=== PATIENT | male | born 1955 | race Two or more races ===

== ENCOUNTER 2024-09-07 07:55 | Day surgery (SDC) | payer MEDICARE, SELFPAY ==
--- NOTE | 2024-09-01 10:53 | EKG_ITS ---
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 : 1955 Requested By: Val Olvera Order Number: [id number] Reading MD: Val Olvera Measurements Intervals [place] Rate: 72 P: 14 MD: 146 QRS: -26 QRSD: 85 T: -37 QT: 349 QTc: 382 Interpretive Statements SINUS RHYTHM LOW QRS VOLTAGE IN PRECORDIAL LEADS [QRS DEFLECTION < 1.0 mV IN CHEST LEADS] POSSIBLE ANTERIOR MYOCARDIAL INFARCTION , OF INDETERMINATE AGE [30 ms Q WAVE IN V3/V4, OR R < 0.2 mV IN V4] INFERIOR MYOCARDIAL INFARCTION , OF INDETERMINATE AGE [40+ ms Q WAVE AND/OR ST/T ABNORMALITY IN II/aVF] WARNING: DATA QUALITY MAY AFFECT INTERPRETATION No previous ECG available for comparison /[id number]
[2024-09-01 11:04] VITALS: BMI 29.9
[2024-09-01 11:38] LABS: Basophils % (Auto) 1 % (0-2.5); Eosinophils # (Auto) 0.2 Thou/mm3 (0.0-0.5); Eosinophils % (Auto) 3 % (0-10); Hematocrit 44.6 % (41.0-53.0); Hemoglobin 15.9 g/dL (13.5-16.0); Immature Granulocytes % (Auto) 0 % (0-0); Immature Granulocytes Auto 0.02 Thou/mm3 (0.00-0.00); Lymphocytes # (Auto) 1.7 Thou/mm3 (1.0-4.8); Lymphocytes % (Auto) 23 % (10-50); Mean Corpuscular HGB Conc 35.7 g/dl (31.0-37.0); Mean Corpuscular Hemoglobin 30.9 pg (25.0-35.0); Mean Corpuscular Volume 87 fL (80-100); Monocytes # (Auto) 0.7 Thou/mm3 (0.0-0.8); Monocytes % (Auto) 10 % (0-12); Neutrophils # (Auto) 4.6 Thou/mm3 (1.8-7.7); Neutrophils % (Auto) 63 % (37-80); Nucleated Red Blood Cell % 0 /100 WBC (0); Platelet Count 211 Thou/mm3 (140-440); RDW Standard Deviation 39.1 fL (35.1-43.9); Red Blood Count 5.15 Miln/mm3 (4.50-5.90); White Blood Count 7.3 Thou/mm3 (3.8-10.6)
[2024-09-01 11:54] LABS: Alanine Aminotransferase 108 U/L (10-49); Albumin, Serum 4.5 gm/dL (3.4-4.8); Albumin/Globulin Ratio 1.4 (1.2-2.2); Alkaline Phosphatase 45 U/L (46-116); Anion Gap 8 (7-16); Aspartate Amino Transferase 65 U/L (0-34); BUN/Creatinine Ratio 16 Ratio (12-20); Bilirubin,Total 0.5 mg/dL (0.3-1.2); Blood Urea Nitrogen 16 mg/dL (9-23); Calcium 10.2 mg/dL (8.3-10.6); Calcium (Corrected) 10.2 mg/dL (8.5-10.1); Carbon Dioxide 28.2 mMol/L (20.0-31.0); Chloride 102 mMol/L (98-107); Estimated Creatinine Clearance 63.4 mL/min (>60); Globulin 3.2 gm/dL (2.3-3.5); Glucose 183 mg/dL (74-106); Osmolality,Calculated 281 (275-295); Potassium 4.1 mMol/L (3.4-5.1); Sodium 138 mMol/L (136-145); Total Protein 7.7 gm/dL (5.7-8.2); eGFR > 60 See Note
[2024-09-07] VITALS (8 sets, daily range): BP systolic 125–138; BP diastolic 78–92; PULSE 72–80; RESP 12–20; TEMP 36.3–36.7; O2SAT 94–98; BMI 28.8
--- NOTE | 2024-09-07 10:31 | ESOP_ITS ---
Date of Procedure 09/07/24 Pre Op Diagnosis Left inguinal hernia Post Op Diagnosis Indirect left inguinal hernia Procedure Repair of indirect left inguinal hernia with mesh Findings Patient was noted to have indirect left inguinal hernia defect Procedure Description Patient brought into the operating room in supine position. After administ ration of general endotracheal anesthesia, patient's left groin was shaved, prepped and draped in standard surgical manner. The left inguinal crease was anesthetized with half percent Marcaine. An approximately 6 cm incision was made and dissection was carried to subcutaneous tissue. The Kelsy's fascia was divided and the external oblique aponeurosis was opened towards the external ring. The hernia sac and the spermatic cord structures were from the posterior aspect of the external oblique aponeurosis at the level of pubic tubercle. The hernia sac was then meticulously dissected off the spermatic cord structures at the level of internal ring. Patient was noted to have indirect left inguinal hernia sac. The hernia sac was then ligated at the level of internal ring. The floor of inguinal canal was then reconstructed with ultra Pro proceed mesh. The mesh was secured with running 2-0 Prolene suture. The mesh secured medially to the pubic tubercle, superiorly into the conjoin tendon, inferiorly and to the shelving edge of inguinal ligament, the mesh was placed around the cord structures and tacked under the external oblique aponeurosis laterally. The area was copiously and thoroughly washed and irrigated, all the fluids were suctioned and the suction fluid returned clear. Hemostasis was adequate and satisfactory. External oblique aponeurosis was closed with running 2-0 Vicryl suture, and Kelsy's fascia was closed with interrupted suture using 3-0 Vicryl. The incision was closed with 4-0 Monocryl in subcutaneous fashion. Instruments, needles and sponge counts were reported to be correct ?2. Patient tolerated the procedure well. He was extubated, breathing spontaneously and without difficulty and was transferred to postanesthesia care in stable condition. Anesthesia GETA and local Pathology / specimen Other (Hernia sac) Estimated Blood Loss 10 Condition Stable Disposition PACU Surgeon Val Olvera MD Surgical Staff Operation Date: 09/07/24 09:45 Case Staff Anesthesiologist: Luis Allen RNbody shop manager: Lolita Pierre
--- NOTE | 2024-09-07 10:35 | SUR.PHASEI ---
1035: Pt. AAOx4, vitals stable, breathing unlabored, complaint of pain, will give pain medication, no complaint of nausea, dressing to lower ABD CDI, no active bleed noted, report received from MD Allen and Odell ARAUZ.
[2024-09-07] MEDS: fentaNYL CIT INJ 50 mCg/ML AMP 2ML IV ×2 (10:42→11:03)
--- NOTE | 2024-09-07 11:40 | SUR.PHASEII ---
1140: Pt. AAOx4, vitals stable, breathing unlabored, no complaint of pain or nausea, dressing to lower ABD CDI, no active bleed noted, pt. tolerated sips of water well, pt. ambulated to wheelchair with steady gait and no assist, no complications. Gave discharge instructions to the pt. and his ride using pad assembler, both verbalized understanding and had no further questions. Pt. left with all personal belongings.
== END 2024-09-07 11:40 | disposition home or self-care (01) ==
PROVIDERS: Anesthesiology; PCP Family Medicine; Referring Provider Surgery; Visit Provider Surgery
PROC: (CPT 49505; principal; 2024-09-07 09:45)
DX: K40.90 Unilateral inguinal hernia, without obstruction or gangrene, not specified as recurrent (principal); E11.9 Type 2 diabetes mellitus without complications; I10 Essential (primary) hypertension; E78.5 Hyperlipidemia, unspecified; Z79.84 Long term (current) use of oral hypoglycemic drugs; Z79.899 Other long term (current) drug therapy
CPT/HCPCS: 49505; 36415; 80053; 85025; 93005; A4217; A4649; C1781; J0690; J1100; J2371; J2704; J2710; J2765; J3010; J3490; A9270; J1596; J1805